=== PATIENT | male | born 1975 | race Caucasian/White ===

== ENCOUNTER 2016-12-26 10:19 | Emergency (ER) | payer OTHER ==
[2016-12-26 14:50] LABS: HEMOGLOBIN 14.9 gm/dl (14.0-17.5); RED BLOOD COUNT 5.08 M/UL (4.20-5.50); WHITE BLOOD COUNT 9.9 K/UL (4.5-11.0)
[2016-12-26 15:10] LABS: BUN/CREATININE RATIO 10 (0-10)
== END 2016-12-26 17:20 | disposition home or self-care (01) ==
LOC: ER1 10:19
PROVIDERS: Emergency Medicine
DX: R10.9 Unspecified abdominal pain (principal); R31.9 Hematuria, unspecified; R11.2 Nausea with vomiting, unspecified
CPT/HCPCS: 36415; 80053; 81001; 83690; 85025; 87086; 96361; 96374; 96375; 99284; J2270; J2405

== ENCOUNTER 2017-01-16 11:16 | Emergency (ER) | payer OTHER | END 2017-01-16 14:10 | disposition home or self-care (01) | LOC: ER1 11:16 | DX: L02.413 Cutaneous abscess of right upper limb (principal); F17.200 Nicotine dependence, unspecified, uncomplicated; Z90.49 Acquired absence of other specified parts of digestive tract | CPT/HCPCS: 10061; 36415; 87070; 87077; 87186; 87205; 99283 ==

== ENCOUNTER → 2017-01-21 | Outpatient (CLI) | payer OTHER | LOC: RAD 09:31 | DX: M25.461 Effusion, right knee (principal); M25.561 Pain in right knee; M17.11 Unilateral primary osteoarthritis, right knee | CPT/HCPCS: 73564 ==

== ENCOUNTER 2017-03-14 12:29 | Emergency (ER) | payer OTHER ==
[2017-03-14 16:04] LABS: HEMOGLOBIN 15.4 gm/dl (14.0-17.5); RED BLOOD COUNT 5.25 M/UL (4.20-5.50); WHITE BLOOD COUNT 8.4 K/UL (4.5-11.0)
[2017-03-14 16:11] LABS: BUN/CREATININE RATIO 16 (0-10)
== END 2017-03-14 19:10 | disposition home or self-care (01) ==
LOC: ER1 12:29
PROVIDERS: Physician Assistant Medical
DX: N23 Unspecified renal colic (principal); F17.210 Nicotine dependence, cigarettes, uncomplicated
CPT/HCPCS: 36415; 80053; 81001; 85025; 87086; 96374; 96375; 96376; 99284; J2270; J2405